=== PATIENT | female | born 1935 | race Caucasian/White ===

== ENCOUNTER → 2018-02-21 | Outpatient (CLI) | payer MEDICARE, BC ==
--- NOTE | 2018-02-21 13:51 | RAD ---
EXAM: Right foot, 3 views. HISTORY: Pain. COMPARISON: None. FINDINGS: 3 views of the right foot are obtained. There is a mildly displaced fracture of the base of the fifth metatarsal. There is first metatarsal phalangeal spurring and a hallux valgus deformity. There is an accessory navicular. IMPRESSION: 1. Mildly displaced fracture at the base of the fifth metatarsal. 2. 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 Electronically signed by: Shazia Acevedo MD (02/21/2018 1:48 PM) [facility]
== END | disposition home or self-care (01) ==
LOC: RAD 13:14
PROVIDERS: ATTEND Family Medicine
DX: S92.351A Displaced fracture of fifth metatarsal bone, right foot, initial encounter for closed fracture (principal); M19.071 Primary osteoarthritis, right ankle and foot; M20.11 Hallux valgus (acquired), right foot; W19.XXXA Unspecified fall, initial encounter; Y93.89 Activity, other specified; Y92.89 Other specified places as the place of occurrence of the external cause; Y99.8 Other external cause status
CPT/HCPCS: 73630

== ENCOUNTER → 2019-01-09 | Outpatient (CLI) | payer MEDICARE, BC ==
--- NOTE | 2019-01-09 10:25 | RAD ---
Indication: Acute neck pain. Left-sided radiculopathy TECHNIQUE: 4 views of the cervical spine COMPARISON: None FINDINGS: Mild anterolisthesis of C2 relative to C3. Atlantoaxial joint or is preserved with degenerative changes. No loss of vertebral body heights to suggest high-grade compression deformities. Multilevel intervertebral disc space narrowing seen with endplate irregularities and osteophyte formation. Multilevel facet arthropathy. Prevertebral soft tissues within normal limits. Clear lung apices. 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 Electronically signed by: Cachorro Damon DO (01/09/2019 10:22 AM) [facility]
== END | disposition home or self-care (01) ==
LOC: RAD 09:33
PROVIDERS: ATTEND Nurse Practitioner Family
DX: M50.30 Other cervical disc degeneration, unspecified cervical region (principal); M12.88 Other specific arthropathies, not elsewhere classified, other specified site; M25.78 Osteophyte, vertebrae; M48.02 Spinal stenosis, cervical region; M43.12 Spondylolisthesis, cervical region
CPT/HCPCS: 72040

== ENCOUNTER → 2019-01-13 | Outpatient (CLI) | payer MEDICARE, BC ==
--- NOTE | 2019-01-13 17:20 | RAD ---
Three-view thoracic spine series Clinical indications: Acute mid back pain. Arthritis. FINDINGS: No compression fracture or discitis or lytic process is evident. There is mild degenerative endplate spurring throughout the thoracic spine. IMPRESSION: No acute compression fracture. Electronically signed by: Donavan Barillas MD (01/13/2019 5:18 PM) [facility]
== END | disposition home or self-care (01) ==
LOC: RAD 14:44
PROVIDERS: ATTEND Nurse Practitioner Family
DX: M46.04 Spinal enthesopathy, thoracic region (principal)
CPT/HCPCS: 72072

== ENCOUNTER → 2019-05-05 | Outpatient (CLI) | payer MEDICARE, BC | END | disposition home or self-care (01) | LOC: LAB 07:02 | PROVIDERS: ATTEND Urology | DX: R30.0 Dysuria (principal) | CPT/HCPCS: 87086 ==